=== PATIENT | male | born 1940 | race Caucasian/White ===

== ENCOUNTER 2016-12-10 10:41 | Outpatient (CLI) | payer MEDICARE ==
[2016-12-10 12:38] LABS: #Basophils 0.1 thou/uL (0.0-0.2); #Eosinphils 0.3 thou/uL (0.0-0.7); #Lymphocytes 2.6 thou/uL (1.20-3.40); #Monocytes 0.7 thou/uL (0.11-0.59); #Neutrophils 5.8 thou/uL (1.40-6.50); %Eosinophils 3.5 % (0.0-10.0); %Monocytes 7.6 % (0.0-10.0); Hematocrit 39.6 % (42.0-52.0); Mean Platelet Volume 7.2 fL (7.4-10.4); Red Blood Cell (RBC) Count 4.07 mill/uL (4.70-6.10); White Blood Cell (WBC) Count 9.6 thou/uL (4.8-10.8)
[2016-12-10 13:00] LABS: ALT (SGPT) 19 U/L (0-55); AST (SGOT) 19 U/L (5-34); Alkaline Phosphatase 72 U/L (40-150); Anion Gap 13 mmol/L (10-20); BUN (Urea Nitrogen) 19 mg/dL (8.4-25.7); Bilirubin, Total 0.5 mg/dL (0.2-1.2); Calc. Creatinine Clearance 0 mL/min (70-130); Calcium 9.5 mg/dL (7.8-10.44); Carbon Dioxide 30 mmol/L (23-31); Chloride 102 mmol/L (98-107); Estimated GFR-MDRD 44; Globulin 3.1 g/dL (2.4-3.5); LDL Cholesterol, Calculated 64 mg/dL; Protein, Total 6.8 g/dL (5.8-8.1)
[2016-12-10 13:24] LABS: Hemoglobin A1c 7.8 % (4.0-6.0)
[2016-12-10 19:17] LABS: Microalbumin Urine 6.4 mg/dL (0.5-50.0)
== END 2016-12-10 10:42 | disposition home or self-care (01) ==
LOC: HPCALD 10:41
PROVIDERS: ATTEND Family Medicine
DX: E11.9 Type 2 diabetes mellitus without complications (principal); E78.5 Hyperlipidemia, unspecified
CPT/HCPCS: 36415; 80053; 80061; 82043; 83036; 84443; 85025

== ENCOUNTER 2016-12-25 10:03 | Outpatient (CLI) | payer MEDICARE ==
[2016-12-25 11:16] LABS: Anion Gap 15 mmol/L (10-20); BUN (Urea Nitrogen) 21 mg/dL (8.4-25.7); Calc. Creatinine Clearance 0 mL/min (70-130); Calcium 9.3 mg/dL (7.8-10.44); Carbon Dioxide 28 mmol/L (23-31); Chloride 101 mmol/L (98-107); Estimated GFR-MDRD 44
== END 2016-12-25 10:04 | disposition home or self-care (01) ==
LOC: HPCALD 10:03
PROVIDERS: ATTEND Family Medicine
DX: N28.9 Disorder of kidney and ureter, unspecified (principal)
CPT/HCPCS: 36415; 80048

== ENCOUNTER 2017-01-02 09:51 | Outpatient (CLI) | payer MEDICARE ==
[2017-01-02 11:01] LABS: Bilirubin Negative (Negative); Blood, Urine Negative (Negative); Glucose, Urine (Dipstick) 100 mg/dL (Negative); Ketone, Urine Negative (Negative); Nitrite Negative (Negative); Protein, Urine (Dipstick) 100 mg/dL (Neg-Trace)
[2017-01-02 11:28] LABS: RBC/HPF 0-3 HPF (0-3)
[2017-01-02 11:29] LABS: Bacteria/HPF Rare-Few HPF (None Seen); Squamous Epithelial 0-3 HPF (0-3); WBC/HPF 0-3 HPF (0-3)
== END 2017-01-02 09:52 | disposition home or self-care (01) ==
LOC: HPCALD 09:51
PROVIDERS: ATTEND Family Medicine
DX: N28.9 Disorder of kidney and ureter, unspecified (principal)
CPT/HCPCS: 36415; 81001; 84165; 84166; 87086

== ENCOUNTER 2017-01-02 11:31 | Outpatient (CLI) | payer MEDICARE ==
--- NOTE | 2017-01-02 22:48 | ULT ---
BILATERAL RENAL ULTRASOUND 01/02/17 Ultrasonography of the kidneys was performed for evaluation of renal insufficiency. The right kidney measures 13.0 x 6.5 x 5.0 cm. No mass or hydronephrosis was seen. The cortex was no rmal in thickness and echogenicity. The left kidney similarly appeared normal measuring 11.3 x 7.0 x 5.2 cm. No mass or hydronephrosis w as seen and cortex appears normal. A few shots through the urinary bladder showed it to be fairly decompressed, therefore it is difficu lt to say much about its internal contents. IMPRESSION: No significant renal findings. POS: HOME
== END 2017-01-02 11:32 | disposition home or self-care (01) ==
LOC: BURULT 11:31
PROVIDERS: ATTEND Family Medicine
DX: N28.9 Disorder of kidney and ureter, unspecified (principal)
CPT/HCPCS: 36415; 76770; 81001; 84165; 84166; 87086

== ENCOUNTER 2017-06-11 10:25 | Outpatient (CLI) | payer MEDICARE ==
[2017-06-11 10:50] LABS: #Basophils 0.1 thou/uL (0.0-0.2); #Eosinphils 0.4 thou/uL (0.0-0.7); #Lymphocytes 2.6 thou/uL (1.20-3.40); #Monocytes 0.8 thou/uL (0.11-0.59); #Neutrophils 5.7 thou/uL (1.40-6.50); %Basophils 0.9 % (0.0-1.0); %Eosinophils 3.8 % (0.0-10.0); %Lymphocytes 27.3 % (21.0-51.0); %Monocytes 8.3 % (0.0-10.0); %Neutrophils 59.6 % (42.0-75.0); Hemoglobin 14.5 g/dL (14.0-18.0); Mean Corpuscular HGB CONC 33.5 g/dL (32.0-36.0); Mean Corpuscular Volume 98.4 fl (80.0-94.0); Mean Platelet Volume 8.3 fL (7.4-10.4); Platelet Count 216 thou/uL (130-400); RBC Distribution Width 13.1 % (11.5-14.5); Red Blood Cell (RBC) Count 4.38 mill/uL (4.70-6.10); White Blood Cell (WBC) Count 9.6 thou/uL (4.8-10.8)
[2017-06-11 11:11] LABS: Hemoglobin A1c 7.2 % (4.0-6.0)
[2017-06-11 11:12] LABS: Anion Gap 17 mmol/L (10-20); BUN (Urea Nitrogen) 21 mg/dL (8.4-25.7); Calc. Creatinine Clearance 0 mL/min (70-130); Calcium 9.9 mg/dL (7.8-10.44); Carbon Dioxide 28 mmol/L (23-31); Chloride 102 mmol/L (98-107); Estimated GFR-MDRD 39; Glucose 129 mg/dL (83-110); Potassium 3.9 mmol/L (3.5-5.1); Sodium 143 mmol/L (136-145)
== END 2017-06-11 10:26 | disposition home or self-care (01) ==
LOC: HPCALD 10:25
PROVIDERS: ATTEND Family Medicine
DX: N28.9 Disorder of kidney and ureter, unspecified (principal); E11.9 Type 2 diabetes mellitus without complications
CPT/HCPCS: 36415; 80048; 83036; 85025

== ENCOUNTER 2018-04-24 07:32 | Emergency (ER) | payer MEDICARE ==
[2018-04-24] MEDS ORDERED: Fentanyl 100 MCG/2 ML VIAL ONE (08:11)
[2018-04-24] MEDS ORDERED: Adacel (T-DAP) 0.5 ML VIAL ONE (08:13)
[2018-04-24 08:14] LABS: #Basophils 0.2 thou/uL (0.0-0.2); #Eosinphils 0.5 thou/uL (0.0-0.7); #Lymphocytes 2.9 thou/uL (1.20-3.40); #Monocytes 0.7 thou/uL (0.11-0.59); #Neutrophils 4.9 thou/uL (1.40-6.50); %Basophils 1.7 % (0.0-1.0); %Eosinophils 5.2 % (0.0-10.0); %Lymphocytes 31.8 % (21.0-51.0); %Monocytes 7.3 % (0.0-10.0); Hemoglobin 13.5 g/dL (14.0-18.0); Mean Corpuscular HGB CONC 34.7 g/dL (32.0-36.0); Mean Corpuscular Volume 89.4 fL (78.0-98.0); Platelet Count 213 thou/uL (130-400); RBC Distribution Width 12.7 % (11.5-14.5); Red Blood Cell (RBC) Count 4.35 mill/uL (4.70-6.10)
[2018-04-24 08:17] LABS: Bilirubin Negative (Negative); Blood, Urine Negative (Negative); Clarity Clear (Clear); Glucose, Urine (Dipstick) Negative (Negative); Leukocyte Negative (Negative); Nitrite Negative (Negative); Protein, Urine (Dipstick) Negative (Neg-Trace); Specific Gravity, Urine 1.025 (1.005-1.030); pH, Urine 5.5 (5.0-9.0)
[2018-04-24 08:24] LABS: ALT (SGPT) 19 U/L (8-55); AST (SGOT) 30 U/L (5-34); Albumin 3.3 g/dL (3.4-4.8); Alkaline Phosphatase 78 U/L (40-150); Anion Gap 16 mmol/L (10-20); BUN (Urea Nitrogen) 21 mg/dL (8.4-25.7); Bilirubin, Total 0.7 mg/dL (0.2-1.2); Calc. Creatinine Clearance 0 mL/min (70-130); Calcium 9.2 mg/dL (7.8-10.44); Carbon Dioxide 24 mmol/L (23-31); Chloride 105 mmol/L (98-107); Estimated GFR-MDRD 27; Globulin 3.8 g/dL (2.4-3.5); Glucose 119 mg/dL (83-110); Potassium 4.4 mmol/L (3.5-5.1); Protein, Total 7.1 g/dL (5.8-8.1); Sodium 141 mmol/L (136-145)
--- NOTE | 2018-04-24 10:22 | CT ---
CT OF THE CHEST WITHOUT CONTRAST CT OF THE ABDOMEN AND PELVIS WITHOUT CONTRAST LIMITED CT OF THORACIC AND LUMBOSACRAL SPINE WITHOUT CONTRAST: Date: 04/24/18 HISTORY: Patient tripped and fell over a rock in the yard, with left-sided chest and abdominal pain. Back pain . TECHNIQUE: 1. Multiple contiguous axial images were obtained in a CT of the chest without contrast. Coronal ref ormats were performed. 2. Multiple contiguous axial images were obtained in a CT of the abdomen and pelvis without contrast . Coronal reformats were performed. 3. Limited CT of thoracic and lumbosacral spines performed. Sagittal and coronal reformats were crea berry based off images obtained in the chest, abdomen, and pelvic CTs. FINDINGS: CT CHEST: The heart is normal in size. Calcifications are seen in the coronary arteries and aorta. No hilar or mediastinal lymphadenopathy are appreciated. There are calcified pleural plaques bilaterally. Atelectasis is seen in the left lung base. No pneumo thorax or pleural effusions seen. Emphysematous changes are seen in the lungs with multiple bulla sca ttered throughout, more prominent in the lower lobes. No suspicious pulmonary nodules or infiltrates are seen. There is a minimally displaced fracture of the left posterolateral 7th rib. No other acute osseous ab normality is seen of the bones of the thorax. The chest wall soft tissues are unremarkable. CT ABDOMEN/PELVIS: Calcifications in the spleen may be from prior granulomatous disease. There are hyperdensities in the dependent aspect of the gallbladder which may represent gallstones. The liver, kidneys, adrenal glan ds, and pancreas are unremarkable, although evaluation is limited on this noncontrasted examination. Scattered diverticula are seen in the colon. The small bowel is unremarkable. No abdominal or pelvic lymphadenopathy seen. Atherosclerotic calcifications are seen in the aorta. The bones of the pelvis show no acute abnormality. The abdominal wall soft tissues are unremarkable. LIMITED CT OF THORACIC AND LUMBOSACRAL SPINE: Vertebral bodies demonstrate normal height and alignment without acute fracture or subluxation. Moder ate degenerative changes are seen throughout the spine. No prevertebral soft tissue swelling is seen. IMPRESSION: 1. No evidence of acute intrathoracic abnormality. 2. Bilateral pleural plaques likely secondary to prior asbestos exposure. 3. No evidence of acute intra-abdominal/pelvic abnormality. 4. Cholelithiasis. 5. Diverticulosis. 6. No evidence of acute osseous abnormality of the thoracic or lumbosacral spine. POS: [facility]
== END 2018-04-24 09:41 | disposition home or self-care (01) ==
LOC: BURERS 07:32
DX: S22.32XA Fracture of one rib, left side, initial encounter for closed fracture (principal); D64.9 Anemia, unspecified; K80.20 Calculus of gallbladder without cholecystitis without obstruction; R22.1 Localized swelling, mass and lump, neck; N28.9 Disorder of kidney and ureter, unspecified; I70.90 Unspecified atherosclerosis; E11.9 Type 2 diabetes mellitus without complications; E78.5 Hyperlipidemia, unspecified; I10 Essential (primary) hypertension; Z79.82 Long term (current) use of aspirin; Z79.899 Other long term (current) drug therapy; W17.89XA Other fall from one level to another, initial encounter
CPT/HCPCS: 71250; 74177; 80053; 81003; 85025; 90471; 90715; 96374; J3010

== ENCOUNTER 2018-05-07 10:49 | Outpatient (CLI) | payer MEDICARE ==
[2018-05-07 11:45] LABS: Bilirubin Small (Negative); Blood, Urine Trace (Negative); Clarity Clear (Clear); Glucose, Urine (Dipstick) Negative (Negative); Leukocyte Negative (Negative); Nitrite Negative (Negative); Protein, Urine (Dipstick) 100 mg/dL (Neg-Trace)
--- NOTE | 2018-05-07 15:40 | ULT ---
BILATERAL RENAL ULTRASOUND: Date: 05-07-18 FINDINGS: Ultrasonography of the urinary tract was performed in this patient with chronic kidney disease. The p atient does not image very well. The kidneys are seen quite poorly. They are seen well enough to tell that there is no obstruction. Small to medium sized masses would be missed. Cortex is slightly thin around each kidney. The right kidney is 12.1 cm long and the left is 11.8 cm. No defects were seen in the urinary bladder. The wall is upper normal in thickness at 3 mm. The patie nt's prostate is large, measuring up to 6.4 cm in diameter. IMPRESSION: 1. Low sensitivity study showing no urinary tract obstruction. No focal renal abnormality is seen, wi thin the limitations of the study sensitivity. 2. Prostatic enlargement. POS: HOME
[2018-05-07 18:02] LABS: #Basophils 0.1 thou/uL (0.0-0.2); #Eosinphils 0.4 thou/uL (0.0-0.7); #Monocytes 0.7 thou/uL (0.11-0.59); #Neutrophils 7.1 thou/uL (1.40-6.50); %Basophils 0.9 % (0.0-1.0); %Eosinophils 3.6 % (0.0-10.0); %Lymphocytes 19.9 % (21.0-51.0); %Monocytes 6.3 % (0.0-10.0); %Neutrophils 69.3 % (42.0-75.0); Hemoglobin 14.7 g/dL (14.0-18.0); Mean Corpuscular HGB CONC 32.7 g/dL (32.0-36.0); Mean Corpuscular Hemoglobin 32.3 pg (27.0-31.0); Mean Corpuscular Volume 98.7 fL (78.0-98.0); Mean Platelet Volume 8.4 fL (7.4-10.4); Platelet Count 277 thou/uL (130-400); RBC Distribution Width 12.4 % (11.5-14.5); Red Blood Cell (RBC) Count 4.56 mill/uL (4.70-6.10); White Blood Cell (WBC) Count 10.2 thou/uL (4.8-10.8)
[2018-05-07 18:08] LABS: Creatinine, Urine 295.74 mg/dL (63-166)
[2018-05-07 18:15] LABS: Anion Gap 16 mmol/L (10-20); BUN (Urea Nitrogen) 13 mg/dL (8.4-25.7); Calc. Creatinine Clearance 0 mL/min (70-130); Calcium 9.7 mg/dL (7.8-10.44); Carbon Dioxide 24 mmol/L (23-31); Chloride 104 mmol/L (98-107); Estimated GFR-MDRD 40; Glucose 143 mg/dL (83-110); Phosphorus 3.4 mg/dL (2.3-4.7); Potassium 4.2 mmol/L (3.5-5.1); Sodium 140 mmol/L (136-145)
== END 2018-05-07 10:50 | disposition home or self-care (01) ==
LOC: BURULT 10:49
PROVIDERS: ATTEND Internal Medicine Nephrology
DX: I12.9 Hypertensive chronic kidney disease with stage 1 through stage 4 chronic kidney disease, or unspecified chronic kidney disease (principal); E11.22 Type 2 diabetes mellitus with diabetic chronic kidney disease; N18.3 Chronic kidney disease, stage 3 (moderate); R60.9 Edema, unspecified; N40.0 Benign prostatic hyperplasia without lower urinary tract symptoms
CPT/HCPCS: 36415; 76770; 80048; 81003; 82306; 82570; 83516; 83520; 83883; 83970; 84100; 84156; 84166; 85025; 86038; 86160; 86225; 86235; 86256; 86334

== ENCOUNTER 2020-02-17 12:59 | Emergency (ER) | payer MEDICARE ==
--- NOTE | 2020-02-17 14:27 | RAD ---
PELVIS 1 VIEW: DATE: 02/17/2020. FINDINGS: Review was made of a 2018 CT abdomen and pelvis. There is irregularity along the medial aspect of the inferior pubic ramus and perhaps even a tiny fra gment of bone seen near its junction with the body of the pubis. I am suspicious of a fracture here. The left pubic ring is not seen sufficiently well to rule in or out fracture here, though there is some irregularity of inferior part of the ring. The right acetabulum may be abnormal, but this is no certain on this film. A CT would be needed to definitively diagnose a recent fracture; however, in either case we would be talking about nondisplaced injuries. The hips appear intact. A linear white density over the left femoral neck near the head is probably not related to current trauma given its orientation and normal appearance of the rest of the around it. The SI joints are symmetrical. The remainder of the bony pelvis appeared intact. There are no dislocations. IMPRESSION: Suspicious for a nondisplaced fracture of the right inferior pubic ramus. Left pubic ramus not fully evaluated. If further definition is needed, then a CT of the pelvis would be necessary to be more d efinitive and look for other injuries. CODE T POS: HOME
--- NOTE | 2020-02-17 21:15 | CT ---
CT PELVIS WITHOUT CONTRAST: 02/17/[address] of the pelvis was done for an abnormal plain film following trauma. There is a fracture thr ough the anterior column of the right acetabulum with very slight displacement of fragments. There i s no dislocation of the femoral head and no fracture of the femoral neck. Additionally, there is a no ndisplaced fracture through the right inferior pubic ramus medially. The remainder of the bony pelvis appeared intact. The SI joints are symmetrical. There was no widenin g of the symphysis. The let hip showed no acute findings. Incidental changes noted on the scan were a large prostate, diverticulosis, and an inconsequential f at filled umbilical hernia. There are also some bilateral fat filled inguinal hernias. IMPRESSION: Fractures involving the anterior column of the right acetabulum and the right inferior pubic ramus. Findings discussed with Dr. Gresham at [id number] on 02/17/20. POS: HOME
== END 2020-02-17 15:50 | disposition home or self-care (01) ==
LOC: BURERS 12:59
DX: S32.431A Displaced fracture of anterior column [iliopubic] of right acetabulum, initial encounter for closed fracture (principal); S32.591A Other specified fracture of right pubis, initial encounter for closed fracture; E11.42 Type 2 diabetes mellitus with diabetic polyneuropathy; E78.5 Hyperlipidemia, unspecified; E78.00 Pure hypercholesterolemia, unspecified; I10 Essential (primary) hypertension; W17.89XA Other fall from one level to another, initial encounter
CPT/HCPCS: 72170; 72192

== ENCOUNTER 2021-01-05 14:27 | Emergency (ER) | payer MEDICARE ==
[2021-01-05] MEDS ORDERED: Mag-Al Plus 1200 MG/1200 MG/120 MG/30 ML UDCUP ONE (14:52)
[2021-01-05] MEDS ORDERED: Lidocaine Viscous Sol 2% 15 ml UD Cup ONE (14:52)
[2021-01-05 14:56] LABS: #Basophils 0.1 thou/uL (0.0-0.2); #Monocytes 0.9 thou/uL (0.11-0.59); #Neutrophils 12.8 thou/uL (1.40-6.50); %Basophils 0.4 % (0.0-1.0); %Eosinophils 0.3 % (0.0-10.0); %Lymphocytes 12.5 % (21.0-51.0); %Monocytes 5.5 % (0.0-10.0); %Neutrophils 81.3 % (42.0-75.0); Hemoglobin 14.3 g/dL (14.0-18.0); Mean Corpuscular HGB CONC 32.2 g/dL (32.0-36.0); Mean Corpuscular Hemoglobin 30.7 pg (27.0-31.0); Mean Corpuscular Volume 95.5 fL (78.0-98.0); Mean Platelet Volume 8.1 fL (7.4-10.4); Platelet Count 270 thou/uL (130-400); RBC Distribution Width 11.6 % (11.5-14.5); Red Blood Cell (RBC) Count 4.65 mill/uL (4.70-6.10); White Blood Cell (WBC) Count 15.8 thou/uL (4.8-10.8)
[2021-01-05 15:12] LABS: ALT (SGPT) 22 U/L (8-55); AST (SGOT) 28 U/L (5-34); Albumin 3.7 g/dL (3.4-4.8); Alkaline Phosphatase 82 U/L (40-110); Anion Gap 18 mmol/L (10-20); BUN (Urea Nitrogen) 20 mg/dL (8.4-25.7); Bilirubin, Total 0.9 mg/dL (0.2-1.2); Calc. Creatinine Clearance 0 mL/min (70-130); Calcium 9.6 mg/dL (7.8-10.44); Carbon Dioxide 24 mmol/L (23-31); Chloride 102 mmol/L (98-107); Globulin 4.2 g/dL (2.4-3.5); Glucose 281 mg/dL (83-110); Potassium 3.6 mmol/L (3.5-5.1); Protein, Total 7.9 g/dL (5.8-8.1); Sodium 140 mmol/L (136-145)
[2021-01-05] MEDS ORDERED: Aspirin Chewable 81 MG TAB ONE (15:24)
[2021-01-05] MEDS ORDERED: Enoxaparin Sodium 100 MG/ML SYRINGE ONE ×2 (15:24→15:26)
[2021-01-05 15:40] LABS: CKMB 16.9 ng/mL (0-6.6)
[2021-01-05 16:28] LABS: INR-International Normal Ratio 0.9; Prothrombin Time 12.6 sec (12.0-14.7)
[2021-01-05 16:29] LABS: PTT 34.5 sec (22.9-36.1)
== END 2021-01-05 17:35 | disposition short-term general hospital (02) ==
LOC: BURERS 14:27
DX: I21.4 Non-ST elevation (NSTEMI) myocardial infarction (principal); E78.5 Hyperlipidemia, unspecified; E11.9 Type 2 diabetes mellitus without complications; E78.00 Pure hypercholesterolemia, unspecified; I10 Essential (primary) hypertension
CPT/HCPCS: 71046; 80053; 82553; 83880; 84484; 85025; 85610; 85730; 93005; 96372; J1650

== ENCOUNTER 2021-04-05 12:02 | Emergency (ER) | payer MEDICARE ==
[2021-04-05 12:55] LABS: #Basophils 0.1 thou/uL (0.0-0.2); #Eosinphils 0.4 thou/uL (0.0-0.7); #Lymphocytes 2.2 thou/uL (1.20-3.40); #Monocytes 0.5 thou/uL (0.11-0.59); #Neutrophils 6.6 thou/uL (1.40-6.50); %Eosinophils 3.9 % (0.0-10.0); %Lymphocytes 22.2 % (21.0-51.0); %Monocytes 5.2 % (0.0-10.0); %Neutrophils 67.8 % (42.0-75.0); Hemoglobin 11.3 g/dL (14.0-18.0); Mean Corpuscular HGB CONC 32.9 g/dL (32.0-36.0); Mean Corpuscular Hemoglobin 31.2 pg (27.0-31.0); Mean Corpuscular Volume 94.9 fL (78.0-98.0); Mean Platelet Volume 8.2 fL (7.4-10.4); Platelet Count 263 thou/uL (130-400); RBC Distribution Width 14.8 % (11.5-14.5); Red Blood Cell (RBC) Count 3.61 mill/uL (4.70-6.10); White Blood Cell (WBC) Count 9.7 thou/uL (4.8-10.8)
[2021-04-05 13:16] LABS: ALT (SGPT) 22 U/L (8-55); AST (SGOT) 30 U/L (5-34); Alkaline Phosphatase 65 U/L (40-110); Anion Gap 16 mmol/L (10-20); BUN (Urea Nitrogen) 18 mg/dL (8.4-25.7); Bilirubin, Total 0.8 mg/dL (0.2-1.2); Calc. Creatinine Clearance 0 mL/min (70-130); Calcium 8.8 mg/dL (7.8-10.44); Carbon Dioxide 25 mmol/L (23-31); Chloride 103 mmol/L (98-107); Globulin 3.3 g/dL (2.4-3.5); Glucose 187 mg/dL (83-110); Potassium 3.6 mmol/L (3.5-5.1); Protein, Total 6.3 g/dL (5.8-8.1); Sodium 140 mmol/L (136-145)
[2021-04-05 13:34] LABS: CKMB 1.1 ng/mL (0-6.6)
[2021-04-05 13:45] LABS: Bilirubin Negative (Negative); Blood, Urine Trace (Negative); Clarity Slightly Cloudy (Clear); Glucose, Urine (Dipstick) Negative (Negative); Ketone, Urine Trace mg/dL (Negative); Leukocyte Negative (Negative); Nitrite Negative (Negative); Protein, Urine (Dipstick) > or equal to 300 mg/dL (Neg-Trace); Specific Gravity, Urine 1.025 (1.005-1.030); Urobilinogen 0.2 mg/dL (Less than 2); pH, Urine 5.5 (5.0-9.0)
[2021-04-05 13:49] LABS: Bacteria/HPF 2+ HPF (None Seen); Mucous/LPF 1+ LPF (<2+); RBC/HPF 0-3 HPF (0-3); Squamous Epithelial 0-3 HPF (0-3); WBC/HPF 0-3 HPF (0-3)
[2021-04-05 17:11] LABS: CKMB 1.2 ng/mL (0-6.6)
== END 2021-04-05 17:33 | disposition home or self-care (01) ==
LOC: BURERS 12:02
DX: E86.0 Dehydration (principal); E78.5 Hyperlipidemia, unspecified; I10 Essential (primary) hypertension; I25.2 Old myocardial infarction; E11.42 Type 2 diabetes mellitus with diabetic polyneuropathy
CPT/HCPCS: 51701; 71045; 80053; 81003; 81015; 82553; 83880; 84484; 85025; 93005

== ENCOUNTER 2021-06-02 09:11 | Emergency (ER) | payer MEDICARE ==
[2021-06-02 09:47] LABS: #Basophils 0.1 thou/uL (0.0-0.2); #Eosinphils 0.2 thou/uL (0.0-0.7); #Lymphocytes 1.3 thou/uL (1.20-3.40); #Monocytes 0.4 thou/uL (0.11-0.59); #Neutrophils 3.9 thou/uL (1.40-6.50); %Basophils 1.4 % (0.0-1.0); %Eosinophils 2.7 % (0.0-10.0); %Lymphocytes 22.5 % (21.0-51.0); %Monocytes 6.5 % (0.0-10.0); Hemoglobin 14.1 g/dL (14.0-18.0); Mean Corpuscular HGB CONC 32.5 g/dL (32.0-36.0); Mean Corpuscular Hemoglobin 30.9 pg (27.0-31.0); Mean Corpuscular Volume 94.9 fL (78.0-98.0); Mean Platelet Volume 7.6 fL (7.4-10.4); Platelet Count 257 thou/uL (130-400); RBC Distribution Width 13.4 % (11.5-14.5); Red Blood Cell (RBC) Count 4.58 mill/uL (4.70-6.10); White Blood Cell (WBC) Count 5.8 thou/uL (4.8-10.8)
[2021-06-02] MEDS ORDERED: Boostrix 0.5 ML (Tdap) VIAL ONE (09:47)
[2021-06-02 10:01] LABS: ALT (SGPT) 18 U/L (8-55); AST (SGOT) 27 U/L (5-34); Alkaline Phosphatase 119 U/L (40-110); Anion Gap 14 mmol/L (10-20); BUN (Urea Nitrogen) 15 mg/dL (8.4-25.7); Bilirubin, Total 0.8 mg/dL (0.2-1.2); Calc. Creatinine Clearance 0 mL/min (70-130); Calcium 8.8 mg/dL (7.8-10.44); Carbon Dioxide 29 mmol/L (23-31); Chloride 101 mmol/L (98-107); Globulin 3.8 g/dL (2.4-3.5); Glucose 131 mg/dL (83-110); Potassium 3.4 mmol/L (3.5-5.1); Protein, Total 6.8 g/dL (5.8-8.1); Sodium 141 mmol/L (136-145)
[2021-06-02 10:04] LABS: Bilirubin Negative (Negative); Blood, Urine Small (Negative); Clarity Clear (Clear); Glucose, Urine (Dipstick) Negative (Negative); Ketone, Urine Negative (Negative); Leukocyte Negative (Negative); Nitrite Negative (Negative); Protein, Urine (Dipstick) > or equal to 300 mg/dL (Neg-Trace); Specific Gravity, Urine 1.025 (1.005-1.030)
[2021-06-02] MEDS ORDERED: Acetaminophen 500 MG TAB ONE (10:04)
[2021-06-02 10:10] LABS: Bacteria/HPF Rare-Few HPF (None Seen); RBC/HPF 0-3 HPF (0-3); Squamous Epithelial 0-3 HPF (0-3); WBC/HPF 0-3 HPF (0-3)
[2021-06-02] MEDS ORDERED: Iopamidol 370 76% 100 ML VIAL ONE (13:47)
== END 2021-06-02 11:17 | disposition home or self-care (01) ==
LOC: BURERS 09:11
DX: S20.211A Contusion of right front wall of thorax, initial encounter (principal); S00.03XA Contusion of scalp, initial encounter; E11.42 Type 2 diabetes mellitus with diabetic polyneuropathy; E78.5 Hyperlipidemia, unspecified; E78.00 Pure hypercholesterolemia, unspecified; I10 Essential (primary) hypertension; Z79.82 Long term (current) use of aspirin; Z79.899 Other long term (current) drug therapy; Z23 Encounter for immunization; W18.30XA Fall on same level, unspecified, initial encounter
CPT/HCPCS: 36415; 70450; 72125; 74177; 80053; 81003; 81015; 84484; 85025; 90471; 90715; 94760; Q9967

== ENCOUNTER 2021-07-20 11:18 | Outpatient (CLI) | payer MEDICARE | END 2021-07-20 11:19 | disposition home or self-care (01) | LOC: BURRAD 11:18 | PROVIDERS: ATTEND Family Medicine | DX: M79.601 Pain in right arm (principal) ==